=== PATIENT | female | born 1980 | race Caucasian/White ===

== ENCOUNTER 2023-11-07 16:10 | Inpatient (IN) | payer BC, SELFPAY ==
[2023-11-05] VITALS (10 sets, daily range): BP systolic 90–124; BP diastolic 48–89; BMI 21.9; BMI 21.3
[2023-11-05] MEDS: ZOFRAN 4 MG IV ×2 (10:38→17:36)
[2023-11-05] MEDS: NSS 1000 IV ×3 (10:38→21:39)
[2023-11-05 10:43] LABS: Hemoglobin 11.2 g/dL (12.0-16.0); Nucleated Red Blood Cells % 0 %
[2023-11-05 10:48] LABS: Hematocrit 32.2 % (37.0-47.0); Mean Corp Hgb Conc. 34.8 g/dL (33.0-37.0); Mean Corpuscular Hgb 29.4 pg (27.0-31.0); Mean Corpuscular Volume 84.5 fL (81.0-99.0); Mean Platelet Volume 9.5 fL (7.4-10.4); Platelet Count 495 10^3/uL (130-400); Red Blood Cell Count 3.81 10^6/uL (4.20-5.40); White Blood Cell Count 14.6 10^3/uL (4.8-10.8)
[2023-11-05 10:54] LABS: HCG, Serum Qualitative Screen Negative
[2023-11-05 10:55] LABS: ALT (SGPT) 24 U/L (0-35); AST (SGOT) 32 U/L (14-36); Albumin 2.8 g/dl (3.5-5.0); Alkaline Phosphatase 91 U/L (38-126); Blood Urea Nitrogen 8 mg/dl (7-17); Calcium 8.2 mg/dl (8.4-10.2); Carbon Dioxide 26 mmol/L (22-30); Chloride 90 mmol/L (98-107); Estimated Creatinine Clearance 101 ml/min; Glucose 120 mg/dl (70-99); Potassium 4.7 mmol/L (3.5-5.1); Sodium 124 mmol/L (135-145); Total Bilirubin 0.7 mg/dl (0.2-1.3); Total Protein 5.1 g/dl (6.3-8.2); eGFR > 60.00
--- NOTE | 2023-11-05 11:08 | ED.GENMED ---
History of Present Illness
General
Chief Complaint: Abdominal Symptoms
Source: patient
Time Seen by Provider: 11/05/23 09:51
Nursing documentation reviewed up to this point in time: agreed with
Travel History
Have you had any contact with someone who has COVID-19?: No
Do you have any symptoms of coronavirus? Fever > 100 degrees, chills, cough, shortness of breath, sore throat, loss of taste or smell, muscle aches, or headache?: No
History of Present Illness
History of Present Illness:
Patient is a 43-year-old female with recent bilateral mastectomy October 26 at [facility]. Patient was given IV vancomycin in the hospital and sent home on Keflex. She started with diarrhea and was switched to Bactrim. She continues to have
intermittent diarrhea and has had worsening decreased appetite. She has been nauseous has not vomited but did vomit here in the ER. She feels very thirsty and has been drinking water but continues to feel thirsty. She had low-grade fevers in the
hospital which she was told was normal. Patient denies any pain from surgery site. Patient had her drains removed yesterday.
Patient has a history of C. difficile at age 9
Past History
Past History
ED Past Medical History: None
ED Past Surgical History: None
Social History
Tobacco: Non-smoker
Alcohol: Daily
Review of Systems
Review of Systems
Allergies reviewed?: Yes
All Other Systems: ROS reviewed and negative except as documented in HPI and ROS
Constitutional: Reports fever and chills
Respiratory: Reports no symptoms; Denies trouble breathing
Cardiac: Reports no symptoms
ABD/GI: Reports nausea, vomiting and diarrhea; Denies abdominal pain
: Reports no symptoms
Musculoskeletal: Reports no symptoms
Skin: Reports no symptoms
Neurological: Reports no symptoms
Hematologic/Lymphatic: Reports no symptoms
Psychiatric: Reports no symptoms
Phy Exam
General Physical Exam
General Presentation: no apparent distress
General age: appears stated age
General Skin: warm and dry
General Habitus: normal
General Mental: alert
General Hydration: dry mucous membranes
Cardiovascular Exam
Cardiovascular Exam: no edema, no murmur and tachycardia
Pulmonary Exam
Pulmonary Exam: lungs clear
Neurological Exam
Neurological Exam: alert and oriented x3
Musculoskeletal Exam
Musculoskeletal Exam: full ROM
Skin Exam
Skin Exam: normal color, warm/dry and other (Surgical site site of bilateral mastectomy Steri-Strips intact under each breast area no evidence of infection no erythema drainage palpable expanders nontender)
Psychiatric Exam
Psychiatric Exam: normal mood/affect
Course
Orders/Labs/Results
Orders:
Orders
11/05/23 Breakfast
Regular
11/05/23 10:15
IV Insert/Care/Rem.- Treatment PRN
Urinalysis Reflex To Culture Urgent
0.9% Sodium Chloride 1000 ml [Nss] 1,000 ml IV BOLUS
Ondansetron Injectable [Zofran] 4 mg IV NOW STA
Test Result ONCE
11/05/23 10:35
Complete Blood Count/With Diff Urgent
Comprehensive Metabolic Panel Urgent
HCG, Serum Qualitative Screen Urgent
Lipase Urgent
Magnesium Urgent
Comment: ADDED
Manual Differential Urgent
Serum Osmolality Urgent
Comment: ADDED
TSH Stat
Comment: ADDED
11/05/23 11:11
Add On- LAB Urgent
Tests Added?: Serum osmolality
Urine Osmolality Random [Osmolality, Random Urine] Urgent
Urine Sodium Urgent
11/05/23 11:41
Lactic Acid Q4H
Comment: CANCEL 2nd LACTIC ACID IF 1st LACTIC ACID IS LESS THAN 2
Blood Culture Q30M
SANDHYA Source: Blood/Venous
Specimen Description:
11/05/23 11:51
COVID-19 Antigen Urgent
Source: Nasal Swab
Blood Culture Q30M
SANDHYA Source: Blood/Venous
Specimen Description:
Influenza A+B Rapid Molecular Urgent
SANDHYA Source: Nasal Swab
Specimen Description:
11/05/23 12:04
Acetaminophen [Tylenol] 650 mg .ROUTE .STK-MED ONE
11/05/23 12:05
Acetaminophen [Tylenol] 650 mg PO NOW STA
11/05/23 12:45
CR Chest - 2 Views Urgent
Comment:
Reason For Exam: fever
11/05/23 13:11
C DIFF [C difficile Antigen & Toxins] Urgent
SANDHYA Source: Feces/Stool
Specimen Description:
Date Specimen was Collected: 11/05/23
Time Specimen was Collected: 13:09
Stool Culture Urgent
SANDHYA Source: Feces/Stool
Specimen Description:
Date Specimen was Collected: 11/05/23
Time Specimen was Collected: 13:09
11/05/23 13:33
Admit/Transfer Patient As Directed
Co-Sign Provider:
Level of Care: Observation services
Assign to:: Telemetry
Physician / Group: Harinder/Hospitalist
Diagnosis: diarrhea, hyponatremia
Reason for Telemetry: Arrhythmia
Date to Stop Telemetry: 11/08/23
Time to Stop Telemetry: 11:00
11/05/23 13:34
Code Status As Directed
Resuscitation Status: Full Code
11/05/23 13:38
Add On- LAB Stat
Tests Added?: Magnesium, TSH
Urine Sodium Stat
STOOL [C difficile Antigen & Toxins] Stat
SANDHYA Source: Feces/Stool
Specimen Description:
Stool Culture Stat
SANDHYA Source: Feces/Stool
Specimen Description:
Stool For WBC Stat
SANDHYA Source: Feces/Stool
Specimen Description:
11/05/23 14:52
0.9% Sodium Chloride 1000 ml [Nss] 1,000 ml IV 125 mls/hr
11/05/23 15:47
Acetaminophen [Tylenol] 650 mg PO Q4HPRN PRN
Gabapentin [Neurontin] 100 mg PO TIDPRN PRN
HydrOXYZINE [Atarax] 25 mg PO BID PRN
Ibuprofen [Motrin] 600 mg PO QPMPRN PRN
Ondansetron Injectable [Zofran] 4 mg IV Q6HPRN PRN
11/05/23 15:47
Basic Metabolic Panel Routine
Urinalysis Reflex To Culture Urgent
Activity As Directed
Activity Level: As Tolerated
Intake/ Output As Directed
Frequency: q12h
Vital Signs As Directed
Frequency: Per unit guidelines
Pulse Ox/spot Check [RESP] Routine
Quantity: 1
Rx Incentive Spirometry [RESP] Routine
Frequency: q1h while awake
DX Deep Vein Thrombosis Video Routine
11/05/23 18:00
Enoxaparin Sodium [Lovenox] 40 mg SC QPM
11/05/23 20:00
Buspirone [Buspar] 10 mg PO BID
11/06/23 06:00
Basic Metabolic Panel IN AM
CBC/With Diff [Complete Blood Count/With Diff] IN AM
11/06/23 08:00
Cholecalciferol (Vitamin D3) [VITAMIN D3 (cholecalciferol)] 25 mcg PO DAILY
Cyanocobalamin [Vitamin B-12] 1,000 mcg PO DAILY
Multivitamin [Theragran] 1 tablet PO DAILY
Thiamine HCl [Vitamin B1] 100 mg PO DAILY
11/08/23 11:00
DC Protocol for Telemetry ONCE
Abnormal Lab Results
11/05/23
10:35
WBC 14.6 H 10^3/uL
(4.8-10.8)
RBC 3.81 L 10^6/uL
(4.20-5.40)
Hgb 11.2 L g/dL
(12.0-16.0)
Hct 32.2 L %
(37.0-47.0)
Plt Count 495 H 10^3/uL
(130-400)
Abs Neuts (Manual) 12.5 H 10^3/uL
(1.4-6.5)
Band Neutrophils 13 H %
(0-3)
Lymphocytes (Manual) 9 L %
(20-51)
Sodium 124 L mmol/L
(135-145)
Chloride 90 L mmol/L
(98-107)
Glucose 120 H mg/dl
(70-99)
Serum Osmolality 260 L mOsm/kg
(275-300)
Calcium 8.2 L mg/dl
(8.4-10.2)
Magnesium 2.4 H mg/dl
(1.6-2.3)
Total Protein 5.1 L g/dl
(6.3-8.2)
Albumin 2.8 L g/dl
(3.5-5.0)
11/05/23 10:35
11/05/23 10:35
Vital Signs
Initial and Last Documented VS:
Initial Vital Signs
Temp Pulse Resp BP Pulse Ox
99.6 F 119 20 124/89 100
11/05/23 09:17 11/05/23 09:17 11/05/23 09:17 11/05/23 09:17 11/05/23 09:17
Last Documented Vital Signs
Temp Pulse Resp BP Pulse Ox
100.7 F H 114 20 108/65 96
11/05/23 15:53 11/05/23 15:53 11/05/23 15:53 11/05/23 15:53 11/05/23 15:53
Director Of Academic Support consulted with Physician
Director Of Academic Support consulted with physician?: Yes
Name of Physician Consulted: [place]
MDM/Problems Addressed
Differential Diagnosis Includes:
not limited to: dehydration c diff
MDM/Problems Addressed:
Patient is a 43-year-old female status post bilateral mastectomy over a week ago at [place] presents with intermittent diarrhea. Patient has a history of C. difficile as a child. She did receive IV vancomycin in the hospital and initially
discharged on Keflex but switched to Bactrim. She complains of diarrhea and was concerned about C. difficile. She did vomit on arrival to the hospital. Patient presents awake alert no acute distress she is mildly tachycardic she does appear
dehydrated. Patient's white count minimally elevated 14.6. She denies any UTI s/s.. Sodium is 124 normal kidney function normal LFTs. pt hydrated here in the ED did not provide stool specimen. Will admit for hyponatremia also concern for
diarrhea possible C. difficile with history and recent antibiotics
1600:late entry pt+ for c diff hospiaist aware
Chronic conditions affecting care:
Recent diagnosis of breast cancer and b/l mastectomy
*Critical Care Note
Total Time (30-74mins, 75-104mins- exclusive of procedures): Not Applicable
ED Attending Note
-
Portions of this chart may have been created with voice recognition software.� Occasional wrong word or��sound alike� substitutions may have occurred due to the inherent limitations of voice recognition software.
Discharge Plan
Departure
Patient Disposition: Admit
Date of Disposition: 11/05/23
Time of Disposition: 11:30
Admit to: Telemetry
Admit to doctor: hospitalist
Presentation/result/management discussed w/ accepting MD/DO: Hospitalist
Patient with high blood pressure during this ER visit?: No
Condition: Fair
Covid-19: Not Applicable
Discharge Problem:
Diarrhea, Acute hyponatremia, C. difficile diarrhea
Interventions
Interventions:
*Risk Screen - Suicide Last Done: 11/05/23 09:17
*General Assessment Last Done: 11/05/23 09:17
*Neglect/Abuse Screening Last Done: 11/05/23 09:17
*Nursing Disposition Last Done: 11/05/23 15:42
NA-Ldbvwj-Xpljpcdyvy Assessment Last Done: 11/05/23 10:23
ED-Skin Assessment Last Done: 11/05/23 10:23
Discharge Date and Time
Discharge Date/Time: 11/05/23 15:40
[2023-11-05 11:09] LABS: Lipase 62 U/L (23-300)
[2023-11-05 11:58] LABS: Absolute Neutrophils -Man Diff 12.5 10^3/uL (1.4-6.5); Band Neutrophils 13 % (0-3); Lymphocytes 9 % (20-51); Monocytes 5 % (2-9); Normal RBC Morphology Yes; Platelets Checked Yes; Segmented Neutrophils 73 % (42-75); Total Cells Counted 100
[2023-11-05] MEDS: TYLENOL 650 MG PO ×3 (12:06→23:32)
[2023-11-05 12:14] LABS: COVID-19 Antigen Negative (Negative)
[2023-11-05 12:19] LABS: Lactic Acid 1.1 mmol/L (0.7-2.0)
[2023-11-05 12:27] LABS: Osmolality Serum 260 mOsm/kg (275-300)
--- NOTE | 2023-11-05 12:57 | HPS.HSE ---
Addendum entered and electronically signed by Jennie Pizano, DO 11/05/23 22:33:
Nephrology consulted for Na drop to 122 after 1 L NS bolus in ED followed by approximately 7 hours of NS 125 mL per hour. Likely patient is significantly volume contracted due to persistent diarrhea.
Plan:
-finish 500 mL NS bolus running now, and continue 125mL per hour NS after the bolus, repeat BMP at 11 pm
-If Na has dropped again below 122 (ie 120), stop the 125 mL per hour of NS and start hypertonic saline 3% at 20 mL per hour and repeat BMP at 5 am.
Addendum entered and electronically signed by Jennie Pizano, DO 11/05/23 17:22:
C. Difficile is toxigenic positive - oral Vancomycin given once in ED. Will continue Vancomycin oral every 6 hours for now as treatment; can consult to CM in am to address whether insurance will cover Dificid and if so, consider changing to Dificid
instead of oral Vancomycin.
Original Note:
Family Physician
-
Family Physician: PASCALE Arriola
Chief Complaint
-
diarrhea, fever
History of Present Illness
The patient is a 43 yo woman with PMH significant for stage 1 breast cancer invasive ductal s/p b/l mastectomy with b/l expanders at [place] [facility] on 10/26 and C. Difficile colitis as a child, presents to the ED due to watery persistent diarrhea since
surgery 10/26. She's had associated occasional abdominal cramping and chills. No known fever at home. Temp in ED is max of 101.2. Diarrhea has been almost daily, non-bloody, up to 7 times a day over the past week. She received IV Vancomycin at [place]
[place] post-operatively empirically to prevent infection per patient, and was sent home on first Keflex (took 4 days of Keflex) which was changed to Bactrim due to diarrhea (has had 3 days of Bactrim then she d/c'd due to diarrhea). She also has felt
dehydrated, dry mouth, dry lips, and nausea with anorexia and decreased oral intake due to feeling dry and nauseous. She says she feels occasional difficulty taking a deep breath, denies cough, no URI symptoms, no dysuria, no urinary frequency, no
swelling in LE, no SOB at this time.
COVID and Flu negative, HCG negative
WBC 14.6, LA 1.1 Na 124
ED txt: IVF 1 L NS bolus, Tylenol, IV Zofran
Medical History
Past Medical History
Past Medical History: Reports Cancer (invasive ductal carcinoma breast) and Other (C. Difficile as child that failed initial Vancomycin txt per mom)
Past Surgical History: Reports Other (wisdom teeth, ear tubes, hernia as )
Social History
Tobacco: Non-smoker
Alcohol: None
Drug: None
Family History
Family History: Not pertinent
Allergies / Home Medications
Allergies reflects when Allergies were last updated in [facility].
Home Medications with original date entered in [facility]
Allergy/Medication List:
Allergies
Allergy/AdvReac Type Severity Reaction Status Date / Time
Cephalosporins Allergy Unknown Verified 11/05/23 09:23
neomycin Allergy Unknown Verified 11/05/23 09:23
Penicillins Allergy Unknown Verified 11/05/23 09:23
Home Medications
buspirone 10 mg tablet 10 mg PO BID 11/05/23
cholecalciferol (vitamin D3) 25 mcg (1,000 unit) tablet (Vitamin D3) 25 mcg PO DAILY 11/05/23
cyanocobalamin (vitamin B-12) 1,000 mcg tablet 1,000 mcg PO DAILY 11/05/23
gabapentin 100 mg capsule 100 mg PO TIDPRN PRN pain 11/05/23
hydroxyzine HCl 25 mg tablet 25 mg PO BID PRN anxiety 11/05/23
ibuprofen 200 mg tablet (Advil) 600 mg PO QPMPRN PRN mild pain 11/05/23
loperamide 2 mg tablet 2 mg PO Q4HPRN PRN diarrhea 11/05/23
sennosides 8.6 mg tablet (senna) 8.6 mg PO BIDPRN PRN constipation 11/05/23
therapeutic multivitamin 1 tab PO DAILY 11/05/23
thiamine HCl (vitamin B1) 100 mg tablet 100 mg PO DAILY 11/05/23
Review of Systems
-
A 12 point ROS was completed and negative except as noted: Yes
Physical Exam
Vital Signs
Vital Signs
Temp Pulse Resp BP Pulse Ox
101.2 F H 105 18 98/60 99
11/05/23 11:34 11/05/23 11:34 11/05/23 11:34 11/05/23 11:34 11/05/23 11:34
Physical Exam
General: Well Developed, Well Nourished, No Apparent Distress, Comfortable and Conversant
HEENT: NormoCephalic, Anicteric and Moist mucous membranes
Respiratory: Clear and Other (decreased bibasilar breath sounds)
Cardiac: S1/S2 and Tachycardia
Breast: Other (b/l expanders, sp b/l mastectomy incisions c/d/i, no induration, no redness, no cellulitis, no discharge, normal post-op appearance)
GI: Soft, Non Tender and Other (no guarding, no rebound)
Musculoskeletal: No Clubbing, No Cyanosis and No Edema
Skin: Warm, Dry and Other (dry oral mucosa)
Neuro: AO x 3, No Motor Deficits and Nonfocal/grossly intact
Psych: Calm
Laboratory Results
-
11/05/23 10:35
11/05/23 10:35
Laboratory Results
Lactic Acid 1.1 mmol/L (0.7-2.0) 11/05/23 11:41
Total Bilirubin 0.7 mg/dl (0.2-1.3) 11/05/23 10:35
AST 32 U/L (14-36) 11/05/23 10:35
ALT 24 U/L (0-35) 11/05/23 10:35
Alkaline Phosphatase 91 U/L (38-126) 11/05/23 10:35
Lipase 62 U/L (23-300) 11/05/23 10:35
Impression/Plan
-
IMPRESSION:
The patient is a 43 yo woman with PMH significant for stage 1 breast cancer invasive ductal s/p b/l mastectomy with b/l expanders at [place] [facility] on 10/26 and C. Difficile colitis as a child, presents to the ED due to watery persistent diarrhea since
surgery 10/26. She's had associated occasional abdominal cramping and chills. No known fever at home. Temp in ED is max of 101.2. Diarrhea has been almost daily, non-bloody, up to 7 times a day over the past week. She received IV Vancomycin at [place]
[place] post-operatively empirically to prevent infection per patient, and was sent home on first Keflex (took 4 days of Keflex) which was changed to Bactrim due to diarrhea (has had 3 days of Bactrim then she d/c'd due to diarrhea).
ED txt: IVF 1 L NS bolus, Tylenol, IV Zofran
#Systemic inflammatory response with fever, tachycardia, leukocytosis following recent b/l mastectomy and expanders associated with diarrhea, no evidence for infection at surgical sites
-possible infectious colitis vs inflammatory /medication induced , no other etiology for infection identified at this time, curb-sided ID and rec is for waiting on cultures prior to initiated abx
COVID and Flu negative, HCG negative
WBC 14.6, LA 1.1
-blood and urine cx pending, CXR pending
-stool studies pending (have not collected yet as no diarrhea in ED)
-Tylenol prn fever
-cont IVF
#Breast Ca-[facility] s/p surgery as noted w Dr. Child (Plastics) and Dr. Banuelos (Breast Surgeon)
[phone]
-Spoke to Plastics (she received standard post-op abx 7 days , no need to continue from surgery stand-point)
-F/u OP with Onc/Breast Surgeons planned
#Moderate Hyponatremia, likely hypovolemic from GI losses; a/w nausea, decreased oral intake, asymptomatic, Gluc 120
-Na 124
-check urine sodium
-repeat serial Na level and monitor closely,
-cont IVF NS for now
DVT proph-Lovenox
Full code
[2023-11-05 14:25] LABS: Magnesium 2.4 mg/dl (1.6-2.3)
[2023-11-05] MEDS: FIRVANQ 125 MG PO ×2 (15:04→21:40)
[2023-11-05 16:23] LABS: TSH 0.55 uIU/ml (0.47-4.68)
[2023-11-05] MEDS: LOVENOX 40 MG SC (17:33)
[2023-11-05] MEDS: ATARAX 25 MG PO (17:42)
--- NOTE | 2023-11-05 18:20 | PTCARENOTE ---
[place] text sent to about HR of 135 at times. Temp 100.7. Pt anxious, given atarax and HR now 113 and tylenol given. No response back from MD as of yet. will pass this on to next RN
[2023-11-05 21:13] LABS: Blood Urea Nitrogen 9 mg/dl (7-17); Calcium 7.5 mg/dl (8.4-10.2); Carbon Dioxide 23 mmol/L (22-30); Chloride 94 mmol/L (98-107); Estimated Creatinine Clearance 101 ml/min; Glucose 116 mg/dl (70-99); Potassium 4.6 mmol/L (3.5-5.1); Sodium 122 mmol/L (135-145); eGFR > 60.00
[2023-11-05] MEDS: NSS 250 IV (21:28)
[2023-11-05] MEDS: BUSPAR 10 MG PO (21:40)
[2023-11-06] VITALS (7 sets, daily range): BP systolic 90–113; BP diastolic 48–69
[2023-11-06] MEDS: ZOFRAN 4 MG IV ×4 (00:03→21:08)
[2023-11-06] MEDS: FIRVANQ 125 MG PO ×3 (00:03→11:55)
[2023-11-06 00:09] LABS: Blood Urea Nitrogen 8 mg/dl (7-17); Calcium 7.4 mg/dl (8.4-10.2); Carbon Dioxide 22 mmol/L (22-30); Chloride 96 mmol/L (98-107); Estimated Creatinine Clearance 101 ml/min; Glucose 102 mg/dl (70-99); Potassium 4.9 mmol/L (3.5-5.1); Sodium 123 mmol/L (135-145); eGFR > 60.00
[2023-11-06] MEDS: MOTRIN 200 MG PO (01:27)
--- NOTE | 2023-11-06 05:02 | PTCARENOTE ---
Pt with fluctuating temps throughout the night ranging from 99.4-101.7. Pt temps respond to medication. Pt BP slightly hypotensive 90's/40's-60's. Pt continued to have small amounts of liquid stools, additional stools sent for testing. Attempted
several times to collect urine, but pt was unable to catch properly while having liquid stools. Pt refused to consider possibly collecting via straight cath. YACHT CAPTAIN aware
[2023-11-06] MEDS: NSS 1000 IV (05:42)
[2023-11-06 06:26] LABS: Osmolality Urine 636 mOsm/kg (300-900)
[2023-11-06 06:39] LABS: Urine Sodium < 5 mmol/L (30-90)
[2023-11-06 07:24] LABS: Urine Albumin Trace (Neg - Trace); Urine Bilirubin 1+ (Negative); Urine Character Clear (Clear); Urine Color Amber; Urine Glucose Negative (Negative); Urine Ketone 3+ (Negative); Urine Leukocyte Trace (Negative); Urine Nitrite Negative (Negative); Urine Occult Blood 1+ (Negative); Urine Urobilinogen 1+ (Neg - 1+)
[2023-11-06] MEDS: VITAMIN B1 100 MG PO (08:30)
[2023-11-06] MEDS: THERAGRAN 1 TABLET PO (08:30)
[2023-11-06] MEDS: VITAMIN D3 (cholecalciferol) 25 MCG PO (08:31)
[2023-11-06] MEDS: VITAMIN B-12 1000 MCG PO (08:31)
[2023-11-06] MEDS: BUSPAR 10 MG PO ×2 (08:31→21:07)
[2023-11-06 08:36] LABS: Urine Hyaline Cast 0-2 /LPF (0-2)
[2023-11-06 08:37] LABS: Urine Bacteria Moderate (Negative)
[2023-11-06] MEDS: MOTRIN 600 MG PO (08:37)
[2023-11-06] MEDS: OMNIPAQUE 50 ML PO (08:37)
[2023-11-06 08:38] LABS: Hematocrit 31.8 % (37.0-47.0); Hemoglobin 10.8 g/dL (12.0-16.0); Mean Corpuscular Hgb 29.3 pg (27.0-31.0); Mean Corpuscular Volume 86.4 fL (81.0-99.0); Mean Platelet Volume 10.2 fL (7.4-10.4); Nucleated Red Blood Cells % 0 %; Platelet Count 522 10^3/uL (130-400); Red Blood Cell Count 3.68 10^6/uL (4.20-5.40); Red Cell Dist. Width 13.2 % (11.5-14.5); White Blood Cell Count 16.9 10^3/uL (4.8-10.8)
[2023-11-06 09:09] LABS: Blood Urea Nitrogen 9 mg/dl (7-17); Calcium 7.3 mg/dl (8.4-10.2); Carbon Dioxide 24 mmol/L (22-30); Chloride 97 mmol/L (98-107); Estimated Creatinine Clearance 101 ml/min; Glucose 83 mg/dl (70-99); Potassium 5.1 mmol/L (3.5-5.1); Sodium 124 mmol/L (135-145); eGFR > 60.00
--- NOTE | 2023-11-06 10:45 | W.PN.HOSP.TC ---
Today's Communication/Plan
-
Empiric antibiotics until cultures all negative
Continue p.o. dara, case work aide consulted for Dificid pricing
Continue IV fluids
Monitor BMP, follow-up nephrology recommendations for hyponatremia
CT abdomen pelvis with contrast
Assessment / Plan
Assessment / Plan
Physical Exam
General: Well Developed, Well Nourished, No Apparent Distress, Comfortable and Conversant
HEENT: NormoCephalic, Anicteric and Moist mucous membranes
Respiratory: Clear and Other (decreased bibasilar breath sounds)
Cardiac: S1/S2 and Tachycardia
Breast: Other (b/l expanders, sp b/l mastectomy incisions c/d/i, no induration, no redness, no cellulitis, no discharge, normal post-op appearance)
GI: Soft, Non Tender and Other (no guarding, no rebound)
Musculoskeletal: No Clubbing, No Cyanosis and No Edema
Skin: Warm, Dry and Other (dry oral mucosa)
Neuro: AO x 3, No Motor Deficits and Nonfocal/grossly intact
Psych: Calm
#Sepsis
-most likely CDiff Colitis
-Started on PO vanc - f/u CM for Dificid pricing
-CT A/P with oral contrast to evaluate any further complications
-s/p recent b/l mastectomy and expanders s/p 7 day course abx with associated with diarrhea, no evidence for infection at surgical sites; has had hx of Cdiff as a child
-F/u Blood cultures, stool cultures
-Empiric Abx initiated
-no urinary symptoms
-Tylenol prn fever
-cont IVF
#Asymptomatic Bacteruria
#Hyponatremia, acute
-most likely 2/2 to diarrhea
-monitor with fluids, resuscitation
-nephro consulted for additional assistance including hypertonic saline
#Breast Ca-[place] s/p surgery as noted w Dr. Child (Plastics) and Dr. Banuelos (Breast Surgeon)
[phone]
-Spoke to Plastics (she received standard post-op abx 7 days , no need to continue from surgery stand-point)
-F/u OP with Onc/Breast Surgeons planned
DVT proph-Lovenox
Total time spent on today's encounter was 50 minutes which included time spent in counseling the patient/family regarding diagnosis and treatment plan as listed above, goals of care, and symptom management. Case was discussed with nursing staff,
specialists, and care coordinators/case management. All labs and imaging personally reviewed by me. Remainder the time spent in detailed review of previous records, lab data, imaging, and other medical provider documentation.
Anticipated Discharge: > 48 hours
Subjective/Interval History
-
Date of Service: November 06, 2023
feels better although still bloated
Objective Data
-
Labs:
Laboratory Results
11/05/23 11/06/23
23:49 07:32
WBC 16.9 H
Hgb 10.8 L
Hct 31.8 L
Plt Count 522 H
Sodium 123 L 124 L
Potassium 4.9 5.1
Chloride 96 L 97 L
Carbon Dioxide 22 24
BUN 8 9
Creatinine 0.6 0.6
Glucose 102 H 83
Calcium 7.4 L 7.3 L
Vital Signs:
Vital Signs
Temp Pulse Resp BP Pulse Ox
100.0 F 107 16 103/58 96
11/06/23 08:00 11/06/23 08:00 11/06/23 08:00 11/06/23 08:00 11/06/23 08:00
I&O
11/05/23 11/06/23 11/07/23
06:59 06:59 06:59
Intake Total 2229 / 2229
Output Total 80 / 80
Balance 2149 / 2149
Review of Systems
-
History Source: Patient
All other systems: Not reviewed unless documented
Data Reviewed
-
Diagnostic Radiology: Image personally visualized and interpreted and Report Reviewed by me
Labs: Labs Reviewed by me
[2023-11-06 11:03] LABS: Absolute Neutrophils -Man Diff 15.5 10^3/uL (1.4-6.5); Band Neutrophils 25 % (0-3); Segmented Neutrophils 67 % (42-75)
[2023-11-06 11:04] LABS: Lymphocytes 3 % (20-51); Monocytes 5 % (2-9); Normal RBC Morphology Yes; Platelets Checked Yes; Total Cells Counted 100; Toxic Granulation 2+
[2023-11-06] MEDS: ROCEPHIN 1000 MG IV (11:54)
[2023-11-06] MEDS: STERILE WATER FOR INJECTION 10 ML IV (11:54)
[2023-11-06] MEDS: FLAGYL 500 MG 100 IV ×2 (11:55→21:07)
--- NOTE | 2023-11-06 12:03 | W.CON.NEPH ---
Addendum entered and electronically signed by Rafita Bailey MD 11/06/23 12:21:
CT with severe pancolitis, pleural effusion, small ascites.
will cap IVF at this time
use samsca 7.5mg once
explained to patient and family
Original Note:
Consultation
-
Date/Time Consultation Requested: November 06, 2023 9 AM
Date/Time Consultation Performed: November 06, 2019 4:12 PM
Requesting Provider: Dr. Pizano
Performing Provider: Dr. Bailey
Reason for Consultation: Hyponatremia
Medical History
-
Chief Complaint: Hyponatremia
History of Present Illness:
This is a 43-year-old female with breast cancer stage I who underwent bilateral mastectomy with Andrea at [facility] on October 26. She received antibiotics at that time. Unfortunately after discharge she developed persistent watery
diarrhea for the last week. This was associated with abdominal cramping. She tried to maintain oral intake by drinking upwards of 70 ounces of electrolytic fluid per day. Her oral solid intake however has not been good. She says that the
diarrhea was primarily at nighttime and was voluminous around 6 or 7 episodes each time. Ultimately she came to the emergency room and was admitted. She was found to have C. difficile on stool studies. She currently has significant abdominal
bloating. She was sodium level was noted to be 124 which has persisted device despite volume.
Past Medical History
Invasive ductal breast cancer stage I status post bilateral mastectomy, tympanostomy tubes, inguinal hernia repair, wisdom teeth extraction, C. difficile as a child
Social History
Tobacco: Non-Smoker
Alcohol: None
Family History
No known CKD
Father had pancreatic cancer
No breast cancer in the family
Allergies / Home Medications
Allergy/AdvReac Type Severity Reaction Status Date / Time
Cephalosporins Allergy Unknown Verified 11/05/23 09:23
neomycin Allergy Unknown Verified 11/05/23 09:23
Penicillins Allergy Unknown Verified 11/05/23 09:23
�Medication �Instructions �Recorded �Confirmed �Type
buspirone 10 mg tablet 10 mg PO BID 11/05/23 11/05/23 History
cholecalciferol (vitamin D3) 25 25 mcg PO DAILY 11/05/23 11/05/23 History
mcg (1,000 unit) tablet (Vitamin
D3)
cyanocobalamin (vitamin B-12) 1,000 mcg PO DAILY 11/05/23 11/05/23 History
1,000 mcg tablet
gabapentin 100 mg capsule 100 mg PO TIDPRN PRN pain 11/05/23 11/05/23 History
hydroxyzine HCl 25 mg tablet 25 mg PO BID PRN anxiety 11/05/23 11/05/23 History
ibuprofen 200 mg tablet (Advil) 600 mg PO QPMPRN PRN mild pain 11/05/23 11/05/23 History
loperamide 2 mg tablet 2 mg PO Q4HPRN PRN diarrhea 11/05/23 11/05/23 History
sennosides 8.6 mg tablet (senna) 8.6 mg PO BIDPRN PRN constipation 11/05/23 11/05/23 History
therapeutic multivitamin 1 tab PO DAILY 11/05/23 11/05/23 History
thiamine HCl (vitamin B1) 100 mg 100 mg PO DAILY 11/05/23 11/05/23 History
tablet
Review of Systems
-
Abdominal bloating. Decreased urine output. No current diarrhea. No chills. No chest pain. No shortness of breath. The remainder of the complete review of systems was negative otherwise
Physical Exam
Vital Signs
Vital Signs
Temp Pulse Resp BP Pulse Ox
100.8 F H 110 20 113/58 97
11/06/23 11:42 11/06/23 11:42 11/06/23 11:42 11/06/23 11:42 11/06/23 11:42
Lab Results
WBC 16.9 10^3/uL (4.8-10.8) H 11/06/23 07:32
RBC 3.68 10^6/uL (4.20-5.40) L 11/06/23 07:32
Hgb 10.8 g/dL (12.0-16.0) L 11/06/23 07:32
Hct 31.8 % (37.0-47.0) L 11/06/23 07:32
Plt Count 522 10^3/uL (130-400) H 11/06/23 07:32
Sodium 124 mmol/L (135-145) L 11/06/23 07:32
Potassium 5.1 mmol/L (3.5-5.1) 11/06/23 07:32
Chloride 97 mmol/L (98-107) L 11/06/23 07:32
Carbon Dioxide 24 mmol/L (22-30) 11/06/23 07:32
BUN 9 mg/dl (7-17) 11/06/23 07:32
Creatinine 0.6 mg/dL (0.6-1.0) 11/06/23 07:32
eGFR > 60.00 11/06/23 07:32
Glucose 83 mg/dl (70-99) 11/06/23 07:32
Calcium 7.3 mg/dl (8.4-10.2) L 11/06/23 07:32
Albumin 2.8 g/dl (3.5-5.0) L 11/05/23 10:35
Physical Exam
Patient is awake alert oriented and in no distress. Mood and affect were pleasant, insight and judgment were good. Pupils are equal round and reactive to light, extraocular movements are intact, sclera were anicteric. Hearing was normal, ears and
nose are intact. Oropharynx was clear. Neck was supple with trachea midline and no thyromegaly. Heart was regular rate and rhythm without rubs. Lower extremities without edema. Lungs were clear to auscultation bilaterally and with normal
excursion. Abdomen was soft, nontender, with high-pitched bowel sounds, and no hepatosplenomegaly. Skin was without rash and with normal turgor.
Data Reviewed
-
Radiology: Image Personally Visualized and interpreted (Chest x-ray on 11/05/2027 by my reading shows no acute disease)
Labs: Labs Reviewed by me (Sodium 124, potassium 5.1, bicarbonate 24, creatinine 0.6, calcium 7.3, urine osmolality 636, urine sodium less than 5, urine creatinine 244, C. difficile positive, urinalysis with pH of 6 was 11.0203+ ketones 1+ blood
trace leuk esterase moderate bacteria trace albumin)
Old Records: Reviewed (On 09/17/2020 sodium 135)
Assessment/Plan
-
Assessment:
C. difficile diarrhea
Abdominal pain
Hyponatremia
Relative hypotension
Breast cancer status postmastectomy and spacers
Plan:
Continue IV fluids saline today.
Follow basic metabolic panel
If sodium remains low tomorrow may need to consider either hypertonic or Samsca
Check postvoid residual bladder scan
Await CT scan reading
Follow creatinine after IV contrast exposure in setting of hypotension
Discussed with patient and family
[2023-11-06] MEDS: ATARAX 25 MG PO ×2 (12:11→21:07)
[2023-11-06] MEDS: MYLICON 80 MG PO ×3 (12:11→23:33)
[2023-11-06] MEDS: FIRVANQ 250 MG PO (13:03)
[2023-11-06] MEDS: SAMSCA 7.5 MG PO (13:03)
[2023-11-06] MEDS: TYLENOL 650 MG PO ×2 (13:04→23:35)
--- NOTE | 2023-11-06 13:10 | CON.ID ---
Consultation
-
Date/Time Consultation Requested: November 06, 2023 1209
Date/Time Consultation Performed: November 06, 2023 1310
Requesting Provider: Dr. Mat Boateng
Performing Provider: Dr. Harriett Santiago
Reason for Consultation: Severe C. difficile
Chief Complaint / Past History
Chief Complaint
Diarrhea
History of Present Illness
History obtained from the patient as well as from her mother at bedside. She is a 43-year-old female recently diagnosed with stage I breast cancer and underwent bilateral mastectomies with expanders placement at [place] on October 27, 2023. She
received preop vancomycin followed by postop cephalexin. However patient developed diarrhea the next day. Diarrhea got worse. The cephalexin was changed to Bactrim on day 5. Diarrhea persisted. The Bactrim was discontinued after 3 doses. She
continued to have diarrhea about 7 times a day. She was taking Imodium. She developed abdominal bloating and had difficulty breathing. She came to the ER yesterday. Her white count was 16. She was febrile up to 101.2. She was hyponatremic. C.
difficile positive. She was started on oral vancomycin. CAT scan shows severe colitis. No megacolon. Patient reports she still feels very bloated. No abdominal pain. No appetite and not eating. Has decreased urine output today. No bowel
movements yet. Still has fevers and chills. Per mom, patient contracted C. difficile. Her brother who was a baby at the time had severe C. difficile and passed on to the family including the patient. She had recurrent C. difficile for 3 years
and has had multiple courses of oral vancomycin and placed on Questran. After that episode as a child, she has been doing well. Prior to the mastectomies she, she was placed on doxycycline for sinusitis.
Past History
Additional Past Medical History:
Stage 1 breast CA s/p bilateral mastectomy with expanders 10/27/23
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
Allergy History:
Cephalosporins Allergy (Verified 11/05/23 09:23)
Mild rash as a child. Recently tolerated cephalexin.
neomycin Allergy (Verified 11/05/23 09:23)
Unknown
Penicillins Allergy (Verified 11/05/23 09:23)
Hives - per mom
Medications Reviewed: Yes
Current Antibiotics:
Vancomcyin 125mg po qid
Social History
Tobacco: Non-Smoker
Alcohol: None
Drug: None
Family History
Family History: Not Pertinent
Review of Systems
Review of Systems
General: Fever, Chills and Change in Appetite
HEENT: Negative Sinus Problems, Headache or Pharyngitis
Cardiovascular: Negative Chest Pain or Dyspnea
Respiratory: Dyspnea; Negative Cough
Gasteroenterology: Nausea; Negative Vomiting
Genital / Urological: Negative Dysuria or Flank Pain
Endocrine: Weakness
Skin / Hair / Nails: Negative Rash
Neurological: Negative Headache or Dizziness
All systems: All other systems were reviewed and were negative
Vital Signs
Temp Pulse Resp BP Pulse Ox
100.8 F H 110 20 113/58 97
11/06/23 11:42 11/06/23 11:42 11/06/23 11:42 11/06/23 11:42 11/06/23 11:42
Selected Entries
11/05/23
23:45
Temp 101.7 F H
Physical Exam
Physical Exam
Constitutional: Other (Uncomfortable appearing)
Eyes: No Conjunctival Hemorrhage and Sclera Anicteric
Cardiovascular: Rub (Tachycardic)
Pulmonary: Clear
Gastrointestinal: Soft, Non Tender, Distended and Decreased Bowel Sounds
Genito-Urinary: Negative CVA Tenderness
Extremities: Negative Edema
Musculoskeletal: Negative Spinal Tenderness
Neurological: AO x 3
Lab / Diagnostic Study Results
11/06/23 07:32
11/06/23 07:32
Abs Immat Gran (auto) Not Reportable 11/05/23 10:35
Absolute Neuts (auto) Not Reportable 11/05/23 10:35
Absolute Lymphs (auto) Not Reportable 11/05/23 10:35
Absolute Monos (auto) Not Reportable 11/05/23 10:35
Absolute Basos (auto) Not Reportable 11/05/23 10:35
Total Counted 100 11/06/23 07:32
Immature Gran % Not Reportable 11/05/23 10:35
Neutrophils % Not Reportable 11/05/23 10:35
Lymphocytes % Not Reportable 11/05/23 10:35
Monocytes % Not Reportable 11/05/23 10:35
Eosinophils % Not Reportable 11/05/23 10:35
Basophils % Not Reportable 11/05/23 10:35
Abs Neuts (Manual) 15.5 10^3/uL (1.4-6.5) H 11/06/23 07:32
Segmented Neutrophils 67 % (42-75) 11/06/23 07:32
Band Neutrophils 25 % (0-3) H D 11/06/23 07:32
Lymphocytes (Manual) 3 % (20-51) L 11/06/23 07:32
Lactic Acid Cancelled 11/05/23 15:45
Microbiology Results
Micro:
11/05/23 11:51 Blood Culture - Preliminary
Blood/Venous No Growth in 24 hours- Final report to follow
11/05/23 11:41 Blood Culture - Preliminary
Blood/Venous No Growth in 24 hours- Final report to follow
11/05/23 22:22 Stool Leukocytes - Final
Feces/Stool
11/05/23 13:11 Salmonella/Shigella Culture - Preliminary
Feces/Stool Culture in Progress
Campylobacter Culture - Preliminary
Culture in Progress
Shiga Toxin Test - Pending
11/06/23 05:43 Urine Culture - Pending
Urine
11/05/23 22:22 Salmonella/Shigella Culture - Pending
Feces/Stool Campylobacter Culture - Pending
Shiga Toxin Test - Pending
11/05/23 13:11 C. difficile GDH Antigen & Toxins - Final
Feces/Stool Toxigenic C.difficile Positive
11/05/23 11:51 Influenza Types A & B ([facility]) - Final
Nasal Swab Negative for Influenza A & B, NAAT
Negative results must be combined with clinical observations
and patient history.
Nucleic Acid Amplification test (NAAT)performed on the
[employer] platform.
11/06/23 CT a/P: There is very severe circumferential wall thickening and submucosal edema in the cecum, ascending colon, transverse colon, descending colon, sigmoid colon, and rectum consistent with a severe diffuse infectious pancolitis caused by
C. difficile infection. There is mucosal hyperenhancement throughout the transverse, descending, and sigmoid colon, as well as within the rectum. There is no evidence for pneumatosis in the colonic wall. There is a small amount of ascites and fluid
around the colon.
11/05/23 CXR: No acute disease of the chest
Assessment / Plan
# Severe C. difficile pancolitis (recent abx exposure)
# Sepsis: fever, worsening leukocytosis, bandemia, tachycardia
# Hyponatremia
# Breast CA s/p bilateral mastectomies (10/27/23)
- Increase Vancomycin to 500mg po q6h.
- Add IV metronidazole 500mg q8h.
- Monitor closely for development of fulminant C. diff/megacolon
-Continue supportive care
-Trend temps, wbc.
Care Review
Plan reviewed with: Physician (Dr. Boateng)
--- NOTE | 2023-11-06 14:41 | CON.GI ---
Consultation
-
Date/Time Consultation Requested: 11/06/2023
Date/Time Consultation Performed: 11/06/2023
Requesting Provider: Dr. Davenport
Performing Provider: Dr. Ovalle
Reason for Consultation: Diarrhea
Medical History
Chief Complaint / HPI
Chief Complaint: Diarrhea
History of Present Illness:
43-year-old female with recent diagnosis of breast cancer status post bilateral mastectomy at [place] , treated with IV vancomycin initially and discharged home on Keflex 10/30/2023 presenting with complaints of diarrhea in the last few
days. Prior to admission to the [facility] [place], patient reports having normal stools, 1-2 formed stool a day, no pushing, straining, blood or black stool. No abdominal pains either. After discharge from the hospital, she has been having
about 5-6 episodes of loose stool, nocturnal episodes as well , some mucus but no blood. No abdominal pain but felt extremely bloated and distended. Fatigue, dehydrated. She also presented with fever on admission of 101.2. Also noted to have
leukocytosis, hemoglobin of 11.2, trended down to 10.8. C. difficile antigen and toxin positive. Cultures pending. Moderate white cells noted. Currently on oral vancomycin 500 g every 6 hours and also IV Flagyl 500 mg every [address] scan of the abdomen pelvis with oral and IV contrast showing severe diffuse pancolitis and small amount of abdominal pelvic ascites. Moderate sized pleural effusions.
Reviewing previous history, patient reports history of C. difficile when she was in first grade, had intermittent episodes for 3 years. She would have mucus with stool. She was at that time treated with oral vancomycin multiple rounds, Questran
and probiotics but since that resolved, she has not had any issues except occasional bloating and abdominal cramping on and off with rare episodes. Brother also had C. difficile when he was very young.
Past Medical History
Past Medical History: Other (History of bilateral breast cancer, history of C. difficile diarrhea)
Past Surgical History: Other (Bilateral mastectomy)
Social History
Tobacco: Non-Smoker
Alcohol: Other (Previously listed have a drink every day but not anymore)
Family History
Family History: Reviewed & Not Pertinent
Allergies / Home Medications
Allergy/AdvReac Type Severity Reaction Status Date / Time
Cephalosporins Allergy Unknown Verified 11/05/23 09:23
neomycin Allergy Unknown Verified 11/05/23 09:23
Penicillins Allergy Unknown Verified 11/05/23 09:23
�Medication �Instructions �Recorded
buspirone 10 mg tablet 10 mg PO BID 11/05/23
cholecalciferol (vitamin D3) 25 25 mcg PO DAILY 11/05/23
mcg (1,000 unit) tablet (Vitamin
D3)
cyanocobalamin (vitamin B-12) 1,000 mcg PO DAILY 11/05/23
1,000 mcg tablet
gabapentin 100 mg capsule 100 mg PO TIDPRN PRN pain 11/05/23
hydroxyzine HCl 25 mg tablet 25 mg PO BID PRN anxiety 11/05/23
ibuprofen 200 mg tablet (Advil) 600 mg PO QPMPRN PRN mild pain 11/05/23
loperamide 2 mg tablet 2 mg PO Q4HPRN PRN diarrhea 11/05/23
sennosides 8.6 mg tablet (senna) 8.6 mg PO BIDPRN PRN constipation 11/05/23
therapeutic multivitamin 1 tab PO DAILY 11/05/23
thiamine HCl (vitamin B1) 100 mg 100 mg PO DAILY 11/05/23
tablet
Review of Systems
-
All other systems: A 12 pt ROS was Negative except as stated above in HPI
Vital Signs
Temp Pulse Resp BP Pulse Ox
100.8 F H 110 20 113/58 97
11/06/23 11:42 11/06/23 11:42 11/06/23 11:42 11/06/23 11:42 11/06/23 11:42
Physical Exam
Exam
General: Well Developed
HEENT: Normocephalic
Respiratory: Clear
Cardiac: S1/S2 and Regular Rhythm
GI: Soft, Tender and Other (Bowel sounds noted)
Neuro: AO x 3
Results
WBC 16.9 10^3/uL (4.8-10.8) H 11/06/23 07:32
Hgb 10.8 g/dL (12.0-16.0) L 11/06/23 07:32
Hct 31.8 % (37.0-47.0) L 11/06/23 07:32
MCV 86.4 fL (81.0-99.0) 11/06/23 07:32
Plt Count 522 10^3/uL (130-400) H 11/06/23 07:32
Absolute Neuts (auto) Not Reportable 11/05/23 10:35
Sodium 124 mmol/L (135-145) L 11/06/23 07:32
Potassium 5.1 mmol/L (3.5-5.1) 11/06/23 07:32
Chloride 97 mmol/L (98-107) L 11/06/23 07:32
Carbon Dioxide 24 mmol/L (22-30) 11/06/23 07:32
BUN 9 mg/dl (7-17) 11/06/23 07:32
Creatinine 0.6 mg/dL (0.6-1.0) 11/06/23 07:32
Calcium 7.3 mg/dl (8.4-10.2) L 11/06/23 07:32
Total Bilirubin 0.7 mg/dl (0.2-1.3) 11/05/23 10:35
AST 32 U/L (14-36) 11/05/23 10:35
ALT 24 U/L (0-35) 11/05/23 10:35
Alkaline Phosphatase 91 U/L (38-126) 11/05/23 10:35
Lipase 62 U/L (23-300) 11/05/23 10:35
Diagnostic Image Results: CT scan of the abdomen pelvis with IV and oral contrast-1. VERY SEVERE DIFFUSE C. DIFFICILE PANCOLITIS.
2. Small volume of abdominal and pelvic ascites.
3. 3.3 cm simple cyst in the right ovary.
4. Small to moderate-sized right and small left pleural effusions.
5. Recent bilateral mastectomies and soft tissue individual pension consultant placement.
Prior GI Procedures:
EGD:
Colonoscopy:
Assessment / Plan
-
43-year-old female with history of bilateral breast cancer status post double mastectomy at [place] 10/27/2023, received antibiotics and now presenting with diarrhea and abdominal distention, C. difficile positive, history of previous C. difficile
diarrhea as a child. Fevers and leukocytosis noted as well.
CT scan showing severe C. difficile diarrhea
-Severe C. difficile diarrhea triggered by recent antibiotic use and also history of previous C. difficile
Will keep her on clear liquid diet
Continue with oral vancomycin every 6 hours. If no improvement, consider Dificid. Continue probiotics.
ID on board as well.
Monitor electrolytes and replete as needed
Avoid narcotics Imodium
Okay for IV Toradol for pain control given recent mastectomy
Ambulation encouraged
Will get abdominal x-ray tomorrow for abdominal distention which could be partly related to fluid overload as well.
-Leukocytosis and fevers
Blood cultures negative so far
Also on IV Flagyl
Will follow
-
-
Thank you for consultation and allowing me to participate in the patient's care. Please call the [facility] GI physician during the after hours with any questions or concerns.
[2023-11-06] MEDS: TORADOL 30 MG IV ×2 (15:06→21:08)
--- NOTE | 2023-11-06 15:42 | PTCARENOTE ---
PT siting in bed and asked me to get the phone for her. The phone was one inch away from her right hand. Pt asked me to put her socks on for her. PT asked me to move the blanket for her. I explained that she needs to move more to keep lymphatics
moving and good muscle control. Her mother told me her daughter is fatigued. I did explain I understand her fatigue as she is certainly sick but that the more she moves all extremities the more energy she will have and the less likely she will have
fluid build up in places it should not be. Education provided on lymphatic drainage, metastatic breast cancer with lymph node removal complication. Pt verbalized an understanding. Pt sent down for CT of her abdomen , GI consulted and spent luz
with patient. Vanco increased and torodal added. PT in room at this moment
[2023-11-06] MEDS: LOVENOX 40 MG SC (18:09)
[2023-11-06] MEDS: FIRVANQ 500 MG PO ×2 (18:09→23:34)
[2023-11-06] MEDS: NEURONTIN 100 MG PO (18:19)
[2023-11-06] MEDS: MELATONIN 10 MG PO (23:34)
[2023-11-07] VITALS (8 sets, daily range): BP systolic 96–121; BP diastolic 48–65; BMI 21.3
[2023-11-07] MEDS: ZOFRAN 4 MG IV ×2 (03:24→12:26)
[2023-11-07] MEDS: FLAGYL 500 MG 100 IV ×2 (03:24→12:09)
[2023-11-07] MEDS: FIRVANQ 500 MG PO ×3 (06:08→17:41)
[2023-11-07 06:22] LABS: Hematocrit 31.4 % (37.0-47.0); Hemoglobin 10.8 g/dL (12.0-16.0); Mean Corp Hgb Conc. 34.4 g/dL (33.0-37.0); Mean Corpuscular Volume 84.2 fL (81.0-99.0); Mean Platelet Volume 9.7 fL (7.4-10.4); Platelet Count 608 10^3/uL (130-400); Red Blood Cell Count 3.73 10^6/uL (4.20-5.40); Red Cell Dist. Width 13.5 % (11.5-14.5); White Blood Cell Count 19.5 10^3/uL (4.8-10.8)
[2023-11-07 06:44] LABS: ALT (SGPT) 23 U/L (0-35); AST (SGOT) 34 U/L (14-36); Alkaline Phosphatase 78 U/L (38-126); Blood Urea Nitrogen 13 mg/dl (7-17); Calcium 7.3 mg/dl (8.4-10.2); Carbon Dioxide 23 mmol/L (22-30); Chloride 96 mmol/L (98-107); Estimated Creatinine Clearance 67 ml/min; Glucose 108 mg/dl (70-99); Potassium 5.2 mmol/L (3.5-5.1); Sodium 122 mmol/L (135-145); Total Bilirubin 0.3 mg/dl (0.2-1.3); eGFR > 60.00
[2023-11-07] MEDS: VISBIOME 2 CAP PO (08:17)
[2023-11-07] MEDS: BUSPAR 10 MG PO (08:17)
[2023-11-07] MEDS: VITAMIN D3 (cholecalciferol) PO (08:17)
[2023-11-07] MEDS: D5/0.9% SODIUM CHLORIDE 1000 IV ×2 (09:06→17:40)
--- NOTE | 2023-11-07 09:37 | W.PN.HOSP.TC ---
Today's Communication/Plan
-
.monitor closely
Assessment / Plan
Assessment / Plan
Physical Exam
General: Well Developed, Well Nourished, No Apparent Distress, Comfortable and Conversant
HEENT: NormoCephalic, Anicteric and dry mucous membranes
Respiratory: Clear and Other (decreased bibasilar breath sounds)
Cardiac: S1/S2 and Tachycardia
Breast: Other (b/l expanders, sp b/l mastectomy incisions c/d/i, no induration, no redness, no cellulitis, no discharge, normal post-op appearance)
GI: Soft, Non Tender and Other (no guarding, no rebound). Slightly distrended
Musculoskeletal: No Clubbing, No Cyanosis and No Edema
Skin: Warm, Dry and Other (dry oral mucosa)
Neuro: AO x 3, No Motor Deficits and Nonfocal/grossly intact
Psych: Calm
#Sepsis due to acute pancolitis CDiff Colitis. Hx of C diff in past
-Started on PO vanc - f/u CM for Dificid pricing
She feels better, no diarrhea over night per night team
Add probiotics
-CT A/P with oral contrast to evaluate any further complications
-s/p recent b/l mastectomy and expanders s/p 7 day course abx with associated with diarrhea, no evidence for infection at surgical sites; has had hx of Cdiff as a child
-negative Blood cultures in 24 hours. , stool cultures are pending
-Stopped IV Abx
- c/w oral vancomycin
-Tylenol prn fever
-cont IVF
# Hypoalbuminemia with mild ascites and some pleural effusion
clinically dehydrated
will give slow one liter of IVF and monitor
#Asymptomatic Bacteruria
#Hyponatremia, acute
Low serum osmolality, high urine osmolality and low urine sodium, c/w volume loss
- likely 2/2 to diarrhea
- Give IVF
-monitor with fluids, resuscitation
-nephro consulted for additional assistance including hypertonic saline
#Breast Ca-Jovan Lama s/p surgery as noted w Dr. Child (Plastics) and Dr. Banuelos (Breast Surgeon)
[phone]
-Spoke to Plastics (she received standard post-op abx 7 days , no need to continue from surgery stand-point)
-F/u OP with Onc/Breast Surgeons planned
DVT proph-Lovenox
Total time spent to see the patient, examine the patient, review data and lab results, discuss treatment plan with patient, nursing staff around 55 minutes
Anticipated Discharge: > 48 hours
Subjective/Interval History
-
Date of Service: November 07, 2023
She feels better
less abd pain
No more diarrhea over night per night team
Objective Data
-
Labs:
Laboratory Results
11/07/23
05:50
WBC 19.5 H
Hgb 10.8 L
Hct 31.4 L
Plt Count 608 H
Sodium 122 L
Potassium 5.2 H
Chloride 96 L
Carbon Dioxide 23
BUN 13
Creatinine 0.9
Glucose 108 H
Calcium 7.3 L
Total Bilirubin 0.3
AST 34
ALT 23
Alkaline Phosphatase 78
Vital Signs:
Vital Signs
Temp Pulse Resp BP Pulse Ox
99.0 F 116 16 102/60 97
11/07/23 07:00 11/07/23 07:00 11/07/23 07:00 11/07/23 07:00 11/07/23 07:00
I&O
11/06/23 11/07/23 11/08/23
06:59 06:59 06:59
Intake Total 2230 / 2230 720 / 720
Output Total 80 / 80
Balance 2150 / 2150 720 / 720
--- NOTE | 2023-11-07 10:21 | W.PN.ID1 ---
Date of Service
Date of Service: November 07, 2023
Today's Communication
Continue high dose po Vanco, IV metronidazole.
Monitor closely.
Assessment / Plan
# Severe C. difficile pancolitis (recent abx exposure)
# Sepsis:
- fever persists
-worsening leukocytosis, tachycardia
# Hyponatremia
# Breast CA s/p bilateral mastectomies (10/27/23)
- Continue Vancomycin to 500mg po q6h (day 1.5)
- Continue IV metronidazole 500mg q8h (day 1.5)
- AXR today: no megacolon
- Monitor closely.
- Follow temps, wbc. If no better, add Vancomycin enema.
- Avoid narcotics.
Chief Complaint
-: C-diff
Subjective / Review of Systems
She reports the abdominal bloating has improved today, less discomfort.
+ small amt diarrhea.
Now making urine.
Vital Signs / Physical Exam
Vital Signs
Vital Signs
Temp Pulse Resp BP Pulse Ox
99.0 F 116 16 102/60 97
11/07/23 07:00 11/07/23 07:00 11/07/23 07:00 11/07/23 07:00 11/07/23 07:00
Selected Entries
11/06/23
23:24
Temp 101.5 F H
Physical Exam
Constitutional: No Acute Distress and Comfortable
Eyes: Sclera Anicteric
Cardiovascular: S1/S2 and Other (tachycardic)
Pulmonary: Other (decreased BS at bases)
Gastrointestinal: Soft, Non Tender, Distended (mild to moderate), Decreased Bowel Sounds and No Guarding
Neurological: AO x 3
Objective Data
Lab Data
Lab Results
11/07/23 05:50
11/07/23 05:50
Estimated Creat Clear 67 ml/min 11/07/23 05:50
Lactic Acid Cancelled 11/05/23 15:45
Total Bilirubin 0.3 mg/dl (0.2-1.3) 11/07/23 05:50
AST 34 U/L (14-36) 11/07/23 05:50
ALT 23 U/L (0-35) 11/07/23 05:50
Alkaline Phosphatase 78 U/L (38-126) 11/07/23 05:50
Most recent labs reviewed.
Micro Results:
11/05/23 11:51 Blood Culture - Preliminary
Blood/Venous No Growth in 24 hours- Final report to follow
11/05/23 11:41 Blood Culture - Preliminary
Blood/Venous No Growth in 24 hours- Final report to follow
11/05/23 22:22 Stool Leukocytes - Final
Feces/Stool
11/05/23 13:11 Salmonella/Shigella Culture - Preliminary
Feces/Stool Culture in Progress
Campylobacter Culture - Preliminary
Culture in Progress
Shiga Toxin Test - Pending
11/06/23 05:43 Urine Culture - Pending
Urine
11/05/23 22:22 Salmonella/Shigella Culture - Pending
Feces/Stool Campylobacter Culture - Pending
Shiga Toxin Test - Pending
11/05/23 13:11 C. difficile GDH Antigen & Toxins - Final
Feces/Stool Toxigenic C.difficile Positive
11/05/23 11:51 Influenza Types A & B ([facility]) - Final
Nasal Swab Negative for Influenza A & B, NAAT
Negative results must be combined with clinical observations
and patient history.
Nucleic Acid Amplification test (NAAT)performed on the
[employer] platform.
11/07/23 AXR: Severe pancolitis. Nonobstructive bowel gas pattern.
11/06/23 CT a/P: There is very severe circumferential wall thickening and submucosal edema in the cecum, ascending colon, transverse colon, descending colon, sigmoid colon, and rectum consistent with a severe diffuse infectious pancolitis caused by
C. difficile infection. There is mucosal hyperenhancement throughout the transverse, descending, and sigmoid colon, as well as within the rectum. There is no evidence for pneumatosis in the colonic wall. There is a small amount of ascites and fluid
around the colon.
11/05/23 CXR: No acute disease of the chest
Care Review
Plan reviewed with: Physician (Drs. Sutton, Vasquez)
--- NOTE | 2023-11-07 11:52 | W.PN.UPDATE ---
Update Note
Progress Note Update
Came back to see the pt again
Abdomen is more distended and pt feels indigestion with nausea. No vomiting
I think pt is developing ileus
X ray no free air
d/w pt and family about IVF
Will make pt NPO
d/w ID doctor, change vancomycin to rectal. c/w IV Flagyl
IV Compazine for nausea
d/w GI . appreciate help
Will ask colorectal to see the pt, appreciate help
Will follow closely
C/W close monitoring. tele
Total critical time spent to see the pt, review data and imaging studies, d/w pt, family, consultants the treatment plan more than 75 minutes
--- NOTE | 2023-11-07 12:16 | W.PN.GI.CBS2 ---
Addendum entered and electronically signed by Rhea Ovalle MD 11/07/23 18:49:
I saw and examined the patient.
The FELT STRIP FINISHER or PA's note was reviewed and I agree with the note.
Comment: Patient with fulminant C. difficile colitis, transfer to IMU for tachycardia and hypotension.
Reached out to multiple places including [place], [facility], [facility] and [place] regarding FMT for fulminant C. difficile, not able to find any providers who would be able to do the FMT.
Me and Jennie Oconnell spent couple of hours coordinating the care.
Patient and family decided to transfer patient to [facility], accepted by colorectal surgery there.
Original Note:
Today's Communication / Plan
-
noted fever, tachycardia, hypotension, worsening leukocytosis with mild distention
reviewed with Dr. Sutton -- she discussed with ID now on vanco PO and enema and IV Flagyl
will review for FMT with Dr. Ovalle if not improving
NPO with concern for developing ileus
agree with colorectal evaluation
trend Vital signs and cbc
agree with transfer to IMU
appreciate ID input
correct electrolytes per hospitalist team still with hyponatremia/hyperkalemia
Avoid narcotics Imodium
remains on IV Toradol for pain control given recent mastectomy
Ambulation encouraged as tolerated
close follow-- family updated at bedside
Assessment / Plan
-
43-year-old female with history of bilateral breast cancer status post double mastectomy at [place] 10/27/2023, received antibiotics and now presenting with diarrhea and abdominal distention, C. difficile positive, history of previous C. difficile
diarrhea as a child. She is also noted with Fevers leukocytosis, tachycardia noted as well. CT scan showing severe C. difficile diarrhea. Also noted hyponatremia and hyperkalemia.
11/07/23 abd X ray Severe pancolitis. Nonobstructive bowel gas pattern.
-severe c-diff with concern for fulminant disease
-mild distention with concern for developing ileus but non obstructive pattern on Xray this am
-leukocytosis
-tachycardia
-hypotension
-hyponatremia
-hyperkalemia
-hypoalbuminemia
-b/l breast mastectomy 10/26 at [facility]
-hx c-diff as child
PLAN:
noted fever, tachycardia, hypotension, worsening leukocytosis with mild distention
reviewed with Dr. Sutton -- she discussed with ID now on vanco PO and enema and IV Flagyl
will review for FMT with Dr. Ovalle if not improving
NPO with concern for developing ileus
agree with colorectal evaluation
trend Vital signs and cbc
agree with transfer to IMU
appreciate ID input
correct electrolytes per hospitalist team still with hyponatremia/hyperkalemia
Avoid narcotics Imodium
remains on IV Toradol for pain control given recent mastectomy
Ambulation encouraged as tolerated
close follow-- family updated at bedside
Subjective
Subjective
Date of Service: November 07, 2023
some distention with pain, small amount of stool + small amount of flatus some belching
Objective
Data Reviewed
Laboratory Data:
Laboratory Results
11/07/23 05:50
11/07/23 05:50
Laboratory Results
Magnesium 2.4 mg/dl (1.6-2.3) H 11/05/23 10:35
Total Bilirubin 0.3 mg/dl (0.2-1.3) 11/07/23 05:50
AST 34 U/L (14-36) 11/07/23 05:50
ALT 23 U/L (0-35) 11/07/23 05:50
Alkaline Phosphatase 78 U/L (38-126) 11/07/23 05:50
Lipase 62 U/L (23-300) 11/05/23 10:35
Vital Signs and I&O:
Vital Signs
Temp Pulse Resp BP Pulse Ox
100.1 F 115 16 110/65 98
11/07/23 11:00 11/07/23 11:00 11/07/23 11:00 11/07/23 11:00 11/07/23 11:00
I&O
11/06/23 11/07/23 11/08/23
06:59 06:59 06:59
Intake Total 2230 / 2230 720 / 720
Output Total 80 / 80
Balance 2150 / 2150 720 / 720
Physical Exam
Physical Exam
HEENT: Anicteric and Other (dry mouth )
Cardiology: Other (tachy)
Pulmonary: Clear
GI: Soft, Distended (mild ) and Tender (minimal )
Extremities: No Edema
Neuro: Non Focal
--- NOTE | 2023-11-07 12:20 | CON.CRS ---
Documented by User: Yue Augustin PA-C 11/07/23 17:01
Consultation
-
Date/Time Consultation Requested: 11/07/2023, 12:00
Date/Time Consultation Performed: 11/07/2023, 12:45
Requesting Provider: Annabel Sutton MD
Performing Provider: Martinez Gregory MD
Reason for Consultation: c.diff colitis
Medical History
-
Chief Complaint: abdominal pain
History of Present Illness:
43-year-old female status post recent double mastectomy on 10/27/2023 due to stage I invasive ductal breast cancer, presents to the ER on 11/05/2023 due to abdominal cramping and diarrhea. She apparently had C. difficile as a child off and on for 3
years. She received preoperative vancomycin and postop cephalexin. The day after she started cephalexin, she developed diarrhea. Cephalexin was changed to Bactrim on day 5 but despite this the diarrhea continued. She had apparently had diarrhea
about 6-7 times a day during the night and she started taking Imodium. She came to the ER after developing abdominal bloating and having issues breathing. In the ER she vomited once. On admission her white count was 14.6. Her sodium was 124. C.
difficile was positive and she was started on oral vancomycin. Infectious disease was consulted and she was started on IV metronidazole as well. A CT on 11/05 showed very severe diffuse C. difficile pancolitis. Despite treatment, her WBC is now up
to 19.5. She remains tachycardic. She has been spiking temperatures with a Tmax of 101.5 last night. This morning her abdomen is more distended, although this afternoon it is less so, and she is nauseous. She states that over the past two days
she has had very little bowel movements. An abdominal x-ray shows severe pancolitis with a nonobstructive bowel gas pattern. We have been consulted for further surgical recommendations.
Past Medical History
Past Medical History: Cancer (invasive ductal carcinoma breast - stage 1) and Other (C. Difficile as a child)
Past Surgical History: Gynecological (b/l mastectomy 10/27/2023 at [place]) and Other (wisdom teeth, ear tubes, hernia as infant (inguinal))
Social History
Tobacco: Non-Smoker
Alcohol: None
Drug: None
Family History
Family History: Other (brother with c.diff as an . Denies colorectal surgery. Denies IBD. )
Allergies / Home Medications
Allergy/AdvReac Type Severity Reaction Status Date / Time
Cephalosporins Allergy Unknown Verified 11/05/23 09:23
neomycin Allergy Unknown Verified 11/05/23 09:23
Penicillins Allergy Unknown Verified 11/05/23 09:23
�Medication �Instructions �Recorded �Confirmed �Type
buspirone 10 mg tablet 10 mg PO BID anxiety 11/05/23 11/05/23 History
cholecalciferol (vitamin D3) 25 25 mcg PO DAILY Supplement 11/05/23 11/05/23 History
mcg (1,000 unit) tablet (Vitamin
D3)
cyanocobalamin (vitamin B-12) 1,000 mcg PO DAILY Supplement 11/05/23 11/05/23 History
1,000 mcg tablet
gabapentin 100 mg capsule 100 mg PO TIDPRN PRN pain 11/05/23 11/05/23 History
hydroxyzine HCl 25 mg tablet 25 mg PO BID PRN anxiety 11/05/23 11/05/23 History
ibuprofen 200 mg tablet (Advil) 600 mg PO QPMPRN PRN mild pain 11/05/23 11/05/23 History
loperamide 2 mg tablet 2 mg PO Q4HPRN PRN diarrhea 11/05/23 11/05/23 History
sennosides 8.6 mg tablet (senna) 8.6 mg PO BIDPRN PRN constipation 11/05/23 11/05/23 History
therapeutic multivitamin 1 tab PO DAILY Supplement 11/05/23 11/05/23 History
thiamine HCl (vitamin B1) 100 mg 100 mg PO DAILY Supplement 11/05/23 11/05/23 History
tablet
Review of Systems
-
History Source: Patient
Abdomen/GI: Abdominal Pain, Nausea, Vomiting, Diarrhea and Other (bloating)
A 10 point review of systems was completed, and was negative except as per HPI.
Physical Exam
Vital Signs
Temp 100.1 F 11/07/23 11:00
Pulse 115 11/07/23 11:00
Resp Rate 16 11/07/23 11:00
Blood pressure 110/65 11/07/23 11:00
SaO2 98 11/07/23 11:00
11/06/23 11/07/23 11/08/23
06:59 06:59 06:59
Actual Weight 54.431 kg
Body Mass Index (BMI) 21.3
Lab Results / Allergies
11/07/23 05:50
11/07/23 05:50
WBC 19.5 10^3/uL (4.8-10.8) H 11/07/23 05:50
Hgb 10.8 g/dL (12.0-16.0) L 11/07/23 05:50
Hct 31.4 % (37.0-47.0) L 11/07/23 05:50
Plt Count 608 10^3/uL (130-400) H 11/07/23 05:50
Abs Immat Gran (auto) Not Reportable 11/05/23 10:35
Neutrophils % Not Reportable 11/05/23 10:35
Allergy/AdvReac Type Severity Reaction Status Date / Time
Cephalosporins Allergy Unknown Verified 11/05/23 09:23
neomycin Allergy Unknown Verified 11/05/23 09:23
Penicillins Allergy Unknown Verified 11/05/23 09:23
Physical Exam
General: No Apparent Distress
GI: Soft, Non Tender and Distended
Skin: Warm and Dry
Neuro: AO x 3
Data Reviewed
-
CT Scan: Image Personally Visualized and interpreted, Report Reviewed by me and Discussed with Patient
Labs: Labs Reviewed by me, Discussed with Physician and Discussed with Patient
Old Records: Reviewed
Assessment / Plan
-
Assessment: 43yo female with a recent history of a bilateral mastectomy due to stage I invasive ductal breast cancer, started on kelfex post op, then switched to bactrim due to persistent diarrhea, presents to the ER due to diarrhea/abdominal pain,
found to have a c.diff colitis and severe pancolitis on CT. WBC rising, now 19.5 (14.6 on admit), spiking temps (tmax 101.5 last night), and tachycardic.
Plan: Surgery vs no surgery was discussed. Surgery would involve a subtotal colectomy with ileostomy creation. Given her wbc increasing despite antibiotics, we spoke at length to the patient, , and mother regarding this option. The patient is
not interested in surgery and would prefer to continue with antibiotics. Her mother is looking into the option of transferring to [place]. In the meantime, we will have the stoma nurse roby her, in case she worsens. Patient had agreed to this option.
Discussed above with ID and Dr. Medel. She will be transferred to IMU for closer monitoring. We will follow.

Documented by User: Adonya Obregon MD 11/07/23 17:57
Assessment / Plan
-
Assessment: 43yo female with a recent history of a bilateral mastectomy due to stage I invasive ductal breast cancer, started on kelfex post op, then switched to bactrim due to persistent diarrhea, presents to the ER due to diarrhea/abdominal pain,
found to have a c.diff colitis and severe pancolitis on CT. WBC rising, now 19.5 (14.6 on admit), spiking temps (tmax 101.5 last night), and tachycardic.
Plan:
-Extensive discussion with patient, and mother was undertaken. Surgery vs no surgery was discussed. She has continued to worsen over the last 2-3 days despite medical therapy. Although maximal medical therapy (ie- PO and MA vanc, IV flagyl)
was just initiated this morning, she is clearly demonstrating systemic signs of infection and sepsis is likely eminent. I explained that awaiting her response to the upgraded abx regimen would risk further worsening of her condition. Surgery would
likely involve a subtotal colectomy with ileostomy creation. I explained the risks of delaying surgery, including but not limited to, clinical decompensation and sepsis. Without surgery, this could happen over a matter of hours. The patient would
prefer to avoid surgery. Her mother would prefer to transfer to [place], to which the patient agreed. I explained that a transfer is risky in her current condition as she could decompensate before or during transfer.
-I discussed the case with Dr. Ovalle, with , who explained that FMT is not an option as no nearby institutions have it available.
-I discussed with Dr. Sutton, [place], who will reach out to [place] to investigate the transfer to [place]. In the meantime, we will have the stoma nurse roby her, in case she worsens. Patient had agreed to this option. Will monitor closely until transfer
if transfer is accepted. She will be transferred to IMU for closer monitoring.
[2023-11-07] MEDS: STERILE WATER FOR INJECTION IV (13:24)
[2023-11-07] MEDS: VANCOMYCIN ENEMA 500 MG RECTAL (13:28)
--- NOTE | 2023-11-07 13:57 | W.PN.NEPH.PH ---
Today's Communication / Plan
-
see plan
Assessment/Plan
-
Assessment:
C. difficile diarrhea
Abdominal pain
Hyponatremia
Relative hypotension
Breast cancer status postmastectomy and spacers
Plan:
Hyponatremia -multifactorial-high ADH mediated U osmo was 636, u na low <5
no response to low dose samsca
Pt back on isotonic fluids and NPO fro developing ileus
repeat labs now, if no response start 3% saline
mild hyperkalemia-monitor, may need lasix prn
100cc postvoid residual bladder scan
plan to transfer to IMU which I agree, surg follows
Follow creatinine after IV contrast exposure 11/05
Discussed with patient and family
-
-
Date of Service: November 07, 2023
CC / HPI / ROS
-
Chief Complaint:
Hyponatremia
History of Present Illness:
sodium down to 122, s/p samsca 7.5 on 11/05
BP soft
febrile last night
k is up at 5.2
on Vanc enemas
Review of Systems:
no cp or sob
+abd distension
Labs
-
Labs:
WBC 19.5 10^3/uL (4.8-10.8) H 11/07/23 05:50
RBC 3.73 10^6/uL (4.20-5.40) L 11/07/23 05:50
Hgb 10.8 g/dL (12.0-16.0) L 11/07/23 05:50
Hct 31.4 % (37.0-47.0) L 11/07/23 05:50
Plt Count 608 10^3/uL (130-400) H 11/07/23 05:50
Sodium 122 mmol/L (135-145) L 11/07/23 05:50
Potassium 5.2 mmol/L (3.5-5.1) H 11/07/23 05:50
Chloride 96 mmol/L (98-107) L 11/07/23 05:50
Carbon Dioxide 23 mmol/L (22-30) 11/07/23 05:50
BUN 13 mg/dl (7-17) 11/07/23 05:50
Creatinine 0.9 mg/dL (0.6-1.0) 11/07/23 05:50
eGFR > 60.00 11/07/23 05:50
Glucose 108 mg/dl (70-99) H 11/07/23 05:50
Calcium 7.3 mg/dl (8.4-10.2) L 11/07/23 05:50
Albumin 2.0 g/dl (3.5-5.0) L 11/07/23 05:50
Physical Exam
-
Vital Signs:
Vital Signs
Temp Pulse Resp BP Pulse Ox
100.1 F 115 16 110/65 98
11/07/23 11:00 11/07/23 11:00 11/07/23 11:00 11/07/23 11:00 11/07/23 11:00
Cardiovascular:: Regular rate and rhythm
Respiratory:: Bilateral: CTA
Lung Excursion:: Normal
Abdomen:: Distended and Nontender
Extremity Edema:: None: Bilateral:
[place]antes Catheter: No
--- NOTE | 2023-11-07 14:44 | WOUNDNOTE ---
SHAYY RN NOTE: Stoma sided all quadrants as requested. Identified rectus muscle, avoided creases and scars. Assessed lying and sitting at side of bed. Patient's abdomen is distended, no complaint of pain patient states, after having a BM. LUQ marked
5.5cm from midline and 5cm proximal from umbilical line. LLQ marked 6 cm from midline and 4cm distal from umbilical line. RUQ marked 5cm from midline and 4.2cm proximal from umbilical line. RLQ marked 6cm from midline and 4.5cm distal from umbilical
line. Support and encouragement given, spoke with spouse and patient at bedside and aware surgeon has final decision during OR. Will follow for Ostomy teaching if needed.
--- NOTE | 2023-11-07 15:44 | PTCARENOTE ---
Patient transferred from 3rd floor to IMU with family at bedside. Patient denying nausea or pain when asked upon arrival. Abdomen rounded with hyperactive bowel sounds. NPO status. Tachycardic at 122 and blood pressure 96/48. Febrile. Patient and
family discussed plan of care with physicians and nursing staff. Patient oriented to room and unit policies.
[2023-11-07] MEDS: OFIRMEV 100 IV (16:49)
[2023-11-07 16:55] LABS: Blood Urea Nitrogen 8 mg/dl (7-17); Calcium 7.1 mg/dl (8.4-10.2); Carbon Dioxide 21 mmol/L (22-30); Chloride 98 mmol/L (98-107); Estimated Creatinine Clearance 101 ml/min; Glucose 138 mg/dl (70-99); Sodium 125 mmol/L (135-145); eGFR > 60.00
--- NOTE | 2023-11-07 17:26 | W.PN.UPDATE ---
Update Note
Progress Note Update
I reevaluated the patient again.
Colorectal surgery is recommending surgical intervention as patient is having abdominal distention, no significant abdominal pain. She is having fever with tachycardia and borderline hypotension
She does not require pressure support as of yet
Colorectal surgery discussed with patient and her family and they wanted to transfer to [facility] for second opinion and to have surgery there.
I called Dr. Bloom, colorectal surgeon at [place]. Reviewed the patient status. She reported that according to patient's data and lab results, with clinical status, surgical intervention was advisable. She also wanted patient to know that she
would be unable to provide magical nonsurgical approach without seeing the patient.
Dr. Bloom requested that patient be advised that she might require same treatment offered in our hospital .
I discussed with the patient and her family. Patient wanted surgery at [facility] knowing possible complications that she might encounter during transportation including but not limited to septic shock
Currently patient is reporting that vancomycin enema helped her with no pain and felt generally better. Given IV Tylenol for fever. Her current blood pressure 103/50
No lethargy, no confusion
Patient signed consent for air transportation. Arrangements were made.
Continue IV fluid, continue IV Flagyl, rectal and oral vancomycin while executing the transfer process. account receivable clerk to up helicopter.
Repeat blood work showed improvement in sodium with 125, potassium 4.0, creatinine 0.6
Current fever 100.4, with heart rate around 120, /blood pressure 121/57
Discussed with colorectal surgery, input and effort appreciated
--- NOTE | 2023-11-07 18:12 | PTCARENOTE ---
Patient discharged via helicopter to [place]. Report provided to flight crew. Belongings packed up by family. Patient and family educated about plan of care.
--- NOTE | 2023-11-07 18:28 | W.DCSUMMARY ---
Discharge Summary
Discharge Data
Date of Admission: 11/05/23
Date of Discharge: 11/07/23
-
Pending Results: No
Hospital Course
43 years old female admitted to the hospital with persistent diarrhea, abdominal cramps and chills. Patient had recent double mastectomy and received antibiotics. Patient had history of Clostridia Difficile ( C-Diff) infection in the past. Stool
examination was positive for C-diff toxin. Patient was evaluated by infectious disease insurance consultant and insulation mechanic. She was started on vancomycin treatment with intravenous metronidazole. She had leukocytosis and low-grade temperature.
Her diarrhea resolved but she continued to have abdominal distention with no significant cramp. Scan of the abdomen and subsequent radiograph of the abdomen showed pancolitis. Her white count continued to go up from 14.6 on admission to 19.5.
Patient started to have sinus tachycardia with borderline hypotension. She was moved to intermediate unit. Rectal vancomycin was added. She was evaluated by colorectal surgeon. Patient was showing signs of failure to aggressive medical therapy
and surgery offered surgical intervention, possibly subtotal colectomy. Patient and family wanted second opinion and to pursue surgical option at [facility]. Communication with transfer center was made. [facility] colorectal
surgeon accepted the patient with enforced knowledge given to the patient that she might be offered same treatment options given to her in [facility]. Patient's condition was stabilized with supportive care and appropriate antibiotic
coverage. She did not need pressure support. She was maintained on bowel rest and she was transported to [facility] through air to secure proper management. Patient left the hospital in a stable condition.
Total discharge/ transfer time spent to see the patient, examine the patient, review data and lab results, discuss discharge plan with patient, family, consultants, Colorectal neurosurgery research director at [facility], nursing staff around 75 minutes
Discharge Plan
-
Patient Disposition: Acute Care Hospital
Discharge Diagnosis/Procedures: Clostridia Difficile joseph-colitis
Referrals:
Becca Buitrago CRNP [Family Provider] -
Prescriptions:
No Action
buspirone [BuSpar] 10 mg Tablet
10 mg PO BID
hydroxyzine HCl 25 mg Tablet
25 mg PO BID PRN (Reason: anxiety)
gabapentin 100 mg Capsule
100 mg PO TIDPRN PRN (Reason: pain)
sennosides [senna] 8.6 mg Tablet
8.6 mg PO BIDPRN PRN (Reason: constipation)
loperamide 2 mg Tablet
2 mg PO Q4HPRN PRN (Reason: diarrhea)
cyanocobalamin (vitamin B-12) 1,000 mcg Tablet
1,000 mcg PO DAILY
thiamine HCl (vitamin B1) 100 mg Tablet
100 mg PO DAILY
Theragen Tablet
1 tab PO DAILY
ibuprofen [Advil] 200 mg Tablet
600 mg PO QPMPRN PRN (Reason: mild pain)
cholecalciferol (vitamin D3) [Vitamin D3] 25 mcg (1,000 unit) Tablet
25 mcg PO DAILY
Discharge Orders:
Discharge Patient (As Directed); Ordered 11/07/23
Ordered By: Annabel Sutton
Discharge Date and Time
Discharge Date/Time: 11/07/23 17:34
Print Language: SINHALA
--- NOTE | 2023-11-07 19:02 | PTCARENOTE ---
Report given to Jolanta YANEZ at [facility]. Discussed medications, vital signs and diagnosis.
== END 2023-11-07 17:34 | disposition short-term general hospital (02) | DRG 872 ==
LOC: IMU 16:10
PROVIDERS: Internal Medicine; Nurse Practitioner; ADMITTING PHYSICIAN Internal Medicine; ATTENDING PHYSICIAN Internal Medicine; CONSULT PHYSICIAN Internal Medicine Gastroenterology; CONSULT PHYSICIAN Internal Medicine Infectious Disease; CONSULT PHYSICIAN Specialist; EMERGENCY PHYSICIAN Emergency Medicine; FAMILY PHYSICIAN Nurse Practitioner; OTHER PHYSICIAN Surgery
DX: A41.9 Sepsis, unspecified organism (principal); A04.71 Enterocolitis due to Clostridium difficile, recurrent; E87.1 Hypo-osmolality and hyponatremia; R18.8 Other ascites; J90 Pleural effusion, not elsewhere classified; R82.71 Bacteriuria; E87.5 Hyperkalemia; E88.09 Other disorders of plasma-protein metabolism, not elsewhere classified; N83.201 Unspecified ovarian cyst, right side; I95.9 Hypotension, unspecified; E86.0 Dehydration; Z90.13 Acquired absence of bilateral breasts and nipples; Z85.3 Personal history of malignant neoplasm of breast; Z88.1 Allergy status to other antibiotic agents; Z88.0 Allergy status to penicillin; Z80.0 Family history of malignant neoplasm of digestive organs; Z11.52 Encounter for screening for COVID-19
CPT/HCPCS: 71046; 74018; 74177; 80048; 80053; 81003; 81015; 82570; 83605; 83690; 83735; 83930; 83935; 84300; 84443; 84703; 85025; 85027; 87040; 87045; 87046; 87086; 87324; 87427; 87449; 87502; 87811; 89055; 93005; 96361; 96374; 99285; Q9967